=== PATIENT | female | born 1980 | race Caucasian/White ===

== ENCOUNTER → 2016-09-26 | Outpatient (CLI) | payer BC ==
[2016-09-26 12:46] LABS: HEMATOCRIT 37.3 % (36.0-47.0); HEMOGLOBIN 12.6 g/dL (12.0-15.5); HGB HCT DIFFERENCE 0.5; MEAN CORPUSCULAR HEMOGLOBIN 27.5 pg (27.0-33.4); MEAN CORPUSCULAR HGB CONC 33.8 g/dL (32.0-36.0); MEAN CORPUSCULAR VOLUME 81 fl (80-97); RED BLOOD COUNT 4.58 10^6/uL (3.72-5.28); RED CELL DISTRIBUTION WIDTH 15.2 % (11.5-14.0); WHITE BLOOD COUNT 10.7 10^3/uL (4.0-10.5)
[2016-09-26 13:35] LABS: ALANINE AMINOTRANSFERASE 39 U/L (9-52); ALBUMIN 4.3 g/dL (3.5-5.0); ALKALINE PHOSPHATASE 84 U/L (38-126); ANION GAP 11 (5-19); ASPARTATE AMINO TRANSFERASE 32 U/L (14-36); BILIRUBIN,TOTAL 0.6 mg/dL (0.2-1.3); BLOOD UREA NITROGEN 16 mg/dL (7-20); CALCIUM 9.8 mg/dL (8.4-10.2); CARBON DIOXIDE 28 mmol/L (22-30); CHLORIDE 102 mmol/L (98-107); CREATININE RESULT 0.74 mg/dL (0.52-1.25); GLUCOSE 79 mg/dL (75-110); POTASSIUM 4.5 mmol/L (3.6-5.0); SODIUM 140.9 mmol/L (137-145); TOTAL PROTEIN 7.3 g/dL (6.3-8.2)
== END ==
LOC: OD 11:14
PROVIDERS: ATTEND Nurse Practitioner Family
DX: Z00.00 Encounter for general adult medical examination without abnormal findings (principal); I10 Essential (primary) hypertension
CPT/HCPCS: 36415; 80053; 82306; 85027

== ENCOUNTER → 2016-09-28 | Outpatient (CLI) | payer BC ==
[2016-09-30 10:22] LABS: FOLLICLE STIMULATING HORMONE 2.8 mIU/mL (.); LUTEINIZING HORMONE 1.3 mIU/mL (.)
== END ==
LOC: OD 13:00
PROVIDERS: ATTEND Nurse Practitioner Family
DX: N92.6 Irregular menstruation, unspecified (principal)
CPT/HCPCS: 36415; 83001; 83002; 84443

== ENCOUNTER → 2016-10-02 | Outpatient (CLI) | payer BC ==
[2016-10-03 05:40] LABS: THYROXINE (T4) 6.7 ug/dL (4.5-12.0)
== END ==
LOC: OD 11:51
PROVIDERS: ATTEND Nurse Practitioner Family
DX: E03.9 Hypothyroidism, unspecified (principal)
CPT/HCPCS: 36415; 84436; 84480

== ENCOUNTER → 2016-10-30 | Outpatient (CLI) | payer BC ==
[2016-11-03 04:37] LABS: QUANTIFERON TB NIL VALUE 0.15 IU/mL (.)
== END ==
LOC: OD 13:04
PROVIDERS: ATTEND Nurse Practitioner Family
DX: Z02.1 Encounter for pre-employment examination (principal)
CPT/HCPCS: 36415; 86480

== ENCOUNTER → 2016-11-09 | Outpatient (CLI) | payer BC ==
[2016-11-10 06:39] LABS: THYROXINE (T4) 7.8 ug/dL (4.5-12.0)
== END ==
LOC: OD 08:47
PROVIDERS: ATTEND Obstetrics & Gynecology Gynecology
DX: E03.9 Hypothyroidism, unspecified (principal)
CPT/HCPCS: 36415; 84436; 84443; 84479; 86376

== ENCOUNTER → 2016-12-01 | Outpatient (CLI) | payer BC | LOC: OD 13:58 | PROVIDERS: ATTEND Family Medicine | DX: Z13.21 Encounter for screening for nutritional disorder (principal) | CPT/HCPCS: 36415; 82306; 86900; 86901 ==

== ENCOUNTER → 2017-03-20 | Outpatient (CLI) | payer BC | LOC: OD 16:06 | PROVIDERS: ATTEND Family Medicine | DX: E03.9 Hypothyroidism, unspecified (principal) | CPT/HCPCS: 36415; 84443 ==